=== PATIENT | female | born 1945 | race Caucasian/White ===

== ENCOUNTER 2017-11-14 07:32 | Observation (INO) ==
[2017-11-14] MEDS ORDERED: HYDROmorphone 2 MG/ML VIAL IM ONE (08:03)
--- NOTE | 2017-11-14 08:06 | Emergency Department Note ---
Back Pain HPI - General Chief Complaint: Back Pain/Injury Stated Complaint: low back pain, chronic Time Seen by Provider: 11/14/17 07:46 Source: EMS Limitations: physical limitation - History of Present Illness HPI Narrative: This patient has been having worsening back pain over the last week to the point that she can now hardly walk move her legs or get out of bed. She does live alone. She was here Tuesday and had plain films that show a lot of degenerative change some compression fractures. She was giving oxycodone tens and that does take the edge off but she cannot really function at home in this condition. No specific bowel or bladder impairment. We did have an MRI opening currently so we will obtain an MRI of this patient's back. - Related Data Home Medications Medication Instructions Recorded Confirmed cyanocobalamin (vit B-12) 1,000 1,000 mcg IM QMONTH 08/30/16 06/28/17 mcg/mL injection solution ipratropium 20 mcg-albuterol 100 1 inh INHALATION QID 08/30/16 06/28/17 mcg/actuation mist for inhalation hydrocodone 10 mg-acetaminophen 1 tab PO ONCE PRN 09/21/16 06/28/17 325 mg tablet tizanidine 4 mg capsule 4 mg PO Q7H PRN cap 09/21/16 06/28/17 tolterodine ER 4 mg 4 mg PO QDAY 09/21/16 06/28/17 capsule,extended release 24 hr fluticasone 110 mcg/actuation HFA 2 puff INHALATION BID 02/22/17 06/28/17 aerosol inhaler alprazolam 0.5 mg tablet See Label Instructions PO QDAY PRN 03/09/17 06/28/17 tab estradiol 2 mg tablet 2 mg PO QDAY tab 06/28/17 06/28/17 Previous Rx's Medication Instructions Recorded oxyCODONE HCL/ACETAMINOPHEN 1 each PO Q6 #10 tab 11/11/17 [Percocet 7.5-325 mg Tablet] Allergies Allergy/AdvReac Type Severity Reaction Status Date / Time cephalexin [From Keflex] Allergy Mild Itching Verified 06/28/17 14:06 aspirin Allergy Unknown Verified 06/28/17 14:06 ibuprofen Allergy Unknown Verified 06/28/17 14:06 Nickel Allergy Unknown Verified 06/28/17 14:06 NSAIDS (Non-Steroidal Allergy Unknown Verified 06/28/17 14:06 Anti-Inflamma Warfarin Allergy Unknown Verified 06/28/17 14:06 blood thinners Allergy Intermediate Unknown Uncoded 06/28/17 14:06 Review of Systems All systems ED: reviewed and negative except as stated. Past Medical History - Past Medical History [facility] Narrative: Medical History (Last Reviewed 03/09/17 @ 10:25 by Aleksander High MD) Abdominal pain (Chronic) Urinary incontinence (Chronic) Nausea (Chronic) Edema of lower extremity (Chronic) Spinal stenosis in cervical region (Chronic) Menopausal and postmenopausal disorder (Chronic) Cholecystitis (Chronic) Irritable bowel syndrome (Chronic) Barrios esophagus (Chronic) Chronic obstructive lung disease (Chronic) Acute exacerbation of chronic obstructive airways disease (Chronic) Bacterial pneumonia (Chronic) Allergic rhinitis (Chronic) Tobacco dependence syndrome (Chronic) Anxiety disorder (Chronic) Recurrent major depression (Chronic) Dementia (Chronic) Thrombocytopenic disorder (Chronic) Vitamin B12 deficiency (non anemic) (Chronic) Polyp of colon (Chronic) Atrophy of kidney (Chronic) Chronic neck pain (Acute) Medication refill (Acute) Idiopathic thrombocytopenic purpura (Chronic) Past Surgical History (Last Reviewed 03/09/17 @ 10:25 by Aleksander High MD) History of colonoscopy (Chronic) History of hysterectomy (Chronic) 11/14/17 07:36 Temperature 97.8 F Pulse Rate 104 H Respiratory Rate 18 Blood Pressure 115/70 Pulse Oximetry (%) 90 Medical history: Reports: other (chronic back pain) Psychiatric history: Reports: no psych history POWDERER history: Reports: non-contributory Surgical history ED: Reports: non-contributory - Social History smoking status: Current every day smoker Physical Exam Limitations: physical limitation General appearance: alert Head: atraumatic Abdominal: Absent: distention, tenderness Back: Present: straight leg raise (R), straight leg raise (L) Neurological: Present: alert Psychiatric: Present: normal affect Skin: Present: warm, dry, intact Course Vital Signs Temperature 97.8 F 11/14/17 07:36 Pulse Rate 104 H 11/14/17 07:36 Respiratory Rate 18 11/14/17 07:36 Blood Pressure 115/70 11/14/17 07:36 Pulse Oximetry (%) 90 11/14/17 07:36 Temperature 97.8 F 11/14/17 07:36 Pulse Rate 95 H 11/14/17 08:16 Respiratory Rate 18 11/14/17 07:36 Blood Pressure 99/60 11/14/17 08:16 Pulse Oximetry (%) 98 11/14/17 08:16 Back Pain/Injury - MDM Narrative Medical decision making narrative: We were able to do an MRI this morning and that is pending. Final disposition on this patient will be per Dr. Smalls. Disposition Pt seen by OUTREACH CLINICIAN/PA only: No Clinical Impression: Sciatica Disposition: Still a Patient Condition: Fair Referrals: Mack Grant MD [Primary Care Provider] -
[2017-11-14] MEDS ORDERED: LORazepam 2 MG/ML VIAL IM ONE (08:22)
--- NOTE | 2017-11-14 09:34 | Magnetic Resonance Report ---
CLINICAL INFORMATION:Reason for Exam:Back Pain COMPARISON: Lumbar x-ray on 11/11/17 TECHNIQUE: Sagittal T1 FLAIR, STIR, fast spin echo T2, axial T2 weighted images were acquired. FINDINGS: L5-S1 disc is severely narrowed and degenerated. 5 mm grade 1 spondylolisthesis is present. There is a medium-sized broad-based posterior bulge and there is moderate arthritis in both facets, left worse than right. There is an annular tear in the posterior disc posterolaterally on the right side. Mild central canal stenosis is present. There is severe stenosis of the left side neural foramen with associated nerve root compression. Right-sided neural foramen is mildly narrowed. At L4-5 the disc is moderately narrowed and there is 9 mm grade 1 spondylolisthesis. A medium-sized broad-based bulge is present. Severe spinal canal stenosis is present at the L4-5 level extending down to the mid L5 level. Much of this is due hypertrophy of the ligamentum flavum posterior to the thecal sac at the upper level of L5. There is severe stenosis of the right and moderate stenosis of the left-sided neural foramina. At L3-4 and L2-3 discs are normal in height but there are subtle posterior bulges. There is no stenosis. The T12-L1 and L1-2 discs are normal. Severe disc space narrowing is present at T10-11 and T11-12, with moderate disc space narrowing at T9-10. There is a medium-sized posterior bulge at L1-2 causing mild spinal canal stenosis. There is no cord compression. The spinal cord ends at the L1-2 level and is normal in size signal and contour. There is loss in height of the T 10 and T11 vertebra but there is no associated bone marrow edema or fracture line. IMPRESSION: Severe spinal canal stenosis at L4-5 and L5 due to spondylolisthesis, bulging disc and hypertrophy of the ligamentum flavum Mild spinal canal stenosis at T11-12 due to moderate-sized posterior bulge Severe stenosis of the neural foramina on the left at L5-S1 and right side at L4-5 Grade 1 spondylolisthesis at L5-S1 with associated posterior bulge Interpreted and Authenticated by: Andrés Gagnon 11/14/17
[2017-11-14] MEDS ORDERED: ONDANSETRON 4 MG/2 ML VIAL IV PRN ×2 (12:46→14:14)
[2017-11-14] MEDS ORDERED: MAGNESIUM HYDROXIDE 30 ML ORAL.SUSP PO PRN ×2 (12:46→14:14)
[2017-11-14] MEDS ORDERED: oxyCODONE/APAP 5/325MG TABLET PO PRN (12:46)
[2017-11-14] MEDS ORDERED: 0.9 % SODIUM CHLORIDE 1,000 ML IV SCH (13:00)
[2017-11-14] MEDS ORDERED: HYDROcodone/APAP 10/325MG TABLET PO PRN (13:07)
[2017-11-14] MEDS ORDERED: METHOCARBAMOL 500 MG TABLET PO PRN (13:07)
[2017-11-14] MEDS ORDERED: 0.9 % SODIUM CHLORIDE 10 ML SYRINGE IV SCH (14:00)
--- NOTE | 2017-11-14 14:07 | Internal Med History&Physical ---
Medical - H&P: HPI Patient information: Note initiated : 11/14/17 at 2:04 pm Service Date, if different from initiated Date: [] Patient: Lola Hearn a 71 y/o F admitted on for Chronic Low Back Pain. Chief Complaint: [uncontrollable back pain and inability to walk] History of present illness: Ms. Hearn is a 71 year old F patient has been having worsening back pain over the last week to the point that she can now hardly walk move her legs or get out of bed. She does live alone. She was here Tuesday and had plain films that show a lot of degenerative change some compression fractures. She was giving oxycodone tens and that does take the edge off but she cannot really function at home in this condition. No specific bowel or bladder impairment. We did have an MRI opening currently so we will obtain an MRI of this patient's back. Pt attended by her neighbor who helps with history as pt is very drowsy from MRI medication. The pt has 2 dogs at home. In last week has been unable to walk, care for self or go to bathroom. The patient is now only sedated due to additional pain meds given here. Outpt percocet had not controlled her pain. Pt tells me her legs give out and thinks her left leg is the weaker. Pt has seen Dr. Christianson in past and recommended for surgery but pt was not happy with benefit risk at the time. - Constitutional Constitutional: Present: frequent falls, weakness - Cardiovascular Cardiovascular: Absent: chest pain, dyspnea - Respiratory Respiratory: Absent: cough, wheezing, excessive phlegm production - Gastrointestinal Gastrointestinal: Present: constipation. Absent: abdominal pain, diarrhea, fecal incontinence, nausea - Genitourinary Genitourinary: Present: as per HPI - Musculoskeletal Musculoskeletal: Present: back pain, muscle weakness (both legs left greater than right) - Neurological Neurological: Present: radicular pain. Absent: numbness, paresthesias Medical - H&P: [facility] Medical history: abdominal pain (Chronic) Urinary incontinence (Chronic) Nausea (Chronic) Edema of lower extremity (Chronic) Spinal stenosis in cervical region (Chronic) Menopausal and postmenopausal disorder (Chronic) Cholecystitis (Chronic) Irritable bowel syndrome (Chronic) Barrios esophagus (Chronic) Chronic obstructive lung disease (Chronic) Acute exacerbation of chronic obstructive airways disease (Chronic) Bacterial pneumonia (Chronic) Allergic rhinitis (Chronic) Tobacco dependence syndrome (Chronic) Anxiety disorder (Chronic) Recurrent major depression (Chronic) Dementia (Chronic) Thrombocytopenic disorder (Chronic) Vitamin B12 deficiency (non anemic) (Chronic) Polyp of colon (Chronic) Atrophy of kidney (Chronic) Chronic neck pain (Acute) Medication refill (Acute) Idiopathic thrombocytopenic purpura (Chronic) Surgical history: History of colonoscopy (Chronic) History of hysterectomy (Chronic) Pertinent family history: none Social history: lives in [facility] Smoking status: Current every day smoker Have you smoked in the last 12 months: Yes Drug use: none Alcohol use: rarely Medical - H&P: Meds Home Medications Medication Instructions Recorded Confirmed Type cyanocobalamin (vit B-12) 1,000 1,000 mcg IM QMONTH 08/30/16 11/14/17 History mcg/mL injection solution ipratropium 20 mcg-albuterol 100 1 inh INHALATION QID 08/30/16 11/14/17 History mcg/actuation mist for inhalation hydrocodone 10 mg-acetaminophen 1 tab PO ONCE PRN 09/21/16 11/14/17 History 325 mg tablet tizanidine 4 mg capsule 4 mg PO Q7H PRN cap 09/21/16 11/14/17 History tolterodine ER 4 mg 4 mg PO QDAY 09/21/16 11/14/17 History capsule,extended release 24 hr fluticasone 110 mcg/actuation HFA 2 puff INHALATION BID 02/22/17 11/14/17 History aerosol inhaler alprazolam 0.5 mg tablet See Label Instructions PO QDAY PRN 03/09/17 11/14/17 History tab estradiol 2 mg tablet 2 mg PO QDAY tab 06/28/17 11/14/17 History Methocarbamol [Robaxin] 500 mg PO QIDP PRN 11/14/17 11/14/17 History Sertraline [Zoloft] 100 mg PO BID 11/14/17 11/14/17 History Umeclidinium [place] [Incruse 62.5 mcg IH DAILY 11/14/17 11/14/17 History Ellipta] oxyCODONE HCL/ACETAMINOPHEN 1 tab PO Q6 11/14/17 11/14/17 History [Percocet 7.5-325 mg Tablet] Allergies Allergy/AdvReac Type Severity Reaction Status Date / Time cephalexin [From Keflex] Allergy Mild Itching Verified 06/28/17 14:06 aspirin Allergy Unknown Verified 06/28/17 14:06 ibuprofen Allergy Unknown Verified 06/28/17 14:06 Nickel Allergy Unknown Verified 06/28/17 14:06 NSAIDS (Non-Steroidal Allergy Unknown Verified 06/28/17 14:06 Anti-Inflamma Warfarin Allergy Unknown Verified 06/28/17 14:06 blood thinners Allergy Intermediate Unknown Uncoded 06/28/17 14:06 Medical - H&P: Exam - Constitutional Vitals: Temp Pulse Resp BP Pulse Ox 97.8 F 91 H 18 90/52 88 L 11/14/17 07:36 11/14/17 13:31 11/14/17 07:36 11/14/17 13:31 11/14/17 13:31 General appearance: average body habitus, cooperative, disheveled - Expanded Eye Exam Pupils: reactive: Bilateral (3mm) - Expanded ENT Exam Throat exam: Present: normal inspection - Expanded Neck Exam Neck exam: Absent: tenderness - Respiratory Respiratory exam: Present: normal respiratory exam, decreased breath sounds ( bases) - Cardiovascular Cardiovascular exam: Present: normal rate and rhythm - GI/Abdominal GI/Abdominal exam: Present: normal bowel sounds, soft - Expanded Lower Extremities Exam Hip exam: Present: full ROM (bilateral hip. straight leg raise bilat no shooting pain) Gait: Present: not tested/not observed - Back Exam Back exam: Present: tenderness, vertebral tenderness Additional comments: no shooting pain elicited - Neurological Exam Neurological exam: Absent: alert - Expanded Neurological Exam Patient oriented to: Present: person, place, time Coma Scale Eye Opening: To Voice Coma Scale Motor Response: Obeys Commands Coma Scale Verbal Response: Oriented Coma Scale Total: 14 - Psychiatric Psychiatric exam: Present: depressed Medical - H&P: A/P (1) Lumbar spinal stenosis Current visit: Yes Status: Acute MRI today with severe canal stenosis at L4-5 and L5 with spondylolisthesis and bulging disc and hypertrophy of the ligamentum flavum. will start decadron and physical therapy. Will communicate with Dr. Geovanny Christianson MD for further inpatient or outpt followup depending on clinical course in next 24 hours. (2) Lumbar back pain with radiculopathy affecting left lower extremity Current visit: Yes Status: Acute pt oversedated from MRI premedication. Will further assess and initiate physical therapy. Straight leg test was not reproducing pain in EMD (3) Back pain Current visit: No Status: Acute weak and unable to walk or manage pain. admitted to observation. (4) Chronic obstructive lung disease Current visit: No Status: Chronic stable. cont home inhalers and prn nebs. (5) Tobacco dependence syndrome Current visit: No Status: Chronic initiate nicotine patch 14 mg (6) Urinary incontinence Current visit: No Status: Chronic chronic and unclear if related to lumbar stenosis. - Narrative A/P Narrative: 55 min spent in evaluation and coordination of care for this patient today.
[2017-11-14 15:36] LABS: Appearance,Urine CLEAR; Bacteria,Urine 0 /hpf (0); Bilirubin,Urine NEG (NEG); Color,Urine YELLOW; Glucose,Urine (UA) NEGATIVE (NEG); Leukocyte Esterase,Urine NEG /uL (NEG); Mucus,Urine FEW /hpf (0); Protein,Urine NEG (NEG); Specific Gravity,Urine 1.025 (1.000-1.035); Urine Blood NEG mg/dL (<0.03); Urine RBC < 1 /hpf (0-1); Urine Squamous Epithelial Cell 2 /hpf (0-4); Urine WBC < 1 /hpf (0-4); Urobilinogen,Urine NEG (NEG)
[2017-11-14 15:41] LABS: ALT/SGPT 14 U/l (0-40); Albumin 3.7 gm/dL (3.2-5.2); Albumin/Globulin Ratio 1.1 (1.0-2.3); Alkaline Phosphatase 90 U/L (39-117); Bilirubin,Direct < 0.2 mg/dL (0.0-0.3); Blood Urea Nitrogen 18 mg/dl (8-23); Gamma Glutamyl Transpeptidase 21 U/L (5-36); Uric Acid 9.1 mg/dL (2.5-8.0)
[2017-11-14 16:06] LABS: Basophils # (Auto) 0 K/mcL (0.0-0.3); Basophils % (Auto) 0.4 % (0.0-2.0); Eosinophils # (Auto) 0.2 K/mcL (0.0-0.7); Eosinophils % (Auto) 2.7 % (0.0-7.0); Granulocytes % (Auto) 59.6 % (38.0-78.0); Lymphocytes # (Auto) 1.6 K/mcL (1.5-4.8); Lymphocytes % (Auto) 24.8 % (15.5-49.0); Mean Cell Volume 103.5 fL (80.0-100.0); Mean Corpuscular HGB Conc 34.8 g/dL (31.0-36.0); Monocytes # (Auto) 0.8 K/mcL (0.1-0.9); Monocytes % (Auto) 12.5 % (1.0-12.0); Platelet Count 100 K/mcL (140-440); RBC 3.46 M/mcL (4.00-5.20); Red Cell Distribution Width 17.6 % (11.5-14.5)
[2017-11-14] MEDS: 0.9 % SODIUM CHLORIDE 1,000 ML IV SCH (16:46)
[2017-11-14] MEDS: DEXAMETHASONE 10 MG/ML VIAL IV SCH ×2 (16:48→21:34)
[2017-11-14] MEDS: IPRATROPIUM/ALBUTEROL SULFATE 1 PUFF INHALER INH SCH ×2 (16:49→21:35)
[2017-11-14] MEDS ORDERED: IPRATROPIUM/ALBUTEROL SULFATE 1 PUFF INHALER INH SCH (17:00)
[2017-11-14] MEDS ORDERED: DOCUSATE SODIUM 100 MG CAPSULE PO SCH (21:00)
[2017-11-14] MEDS ORDERED: FLUTICASONE HFA 110MCG INHALER INH SCH (21:00)
[2017-11-14] MEDS ORDERED: SERTRALINE 100 MG TABLET PO SCH (21:00)
[2017-11-14] MEDS: DOCUSATE SODIUM 100 MG CAPSULE PO SCH (21:34)
[2017-11-14] MEDS: SERTRALINE 100 MG TABLET PO SCH (21:34)
[2017-11-14] MEDS: FLUTICASONE HFA 110MCG INHALER INH SCH (21:35)
[2017-11-14] MEDS: 0.9 % SODIUM CHLORIDE 10 ML SYRINGE IV SCH (21:35)
[2017-11-15] MEDS: oxyCODONE/APAP 5/325MG TABLET PO PRN ×4 (00:41→12:05)
[2017-11-15] MEDS: METHOCARBAMOL 500 MG TABLET PO PRN ×3 (00:41→12:06)
[2017-11-15] MEDS: 0.9 % SODIUM CHLORIDE 1,000 ML IV SCH ×2 (01:37→12:12)
[2017-11-15] MEDS: DEXAMETHASONE 10 MG/ML VIAL IV SCH ×2 (02:34→07:05)
[2017-11-15] MEDS: 0.9 % SODIUM CHLORIDE 10 ML SYRINGE IV SCH (06:08)
[2017-11-15] MEDS ORDERED: ENOXAPARIN 40 MG/0.4 ML SYRINGE SQ SCH ×2 (09:00)
[2017-11-15] MEDS ORDERED: UMECLIDINIUM BROMIDE 62.5 MCG IH SCH (09:00)
[2017-11-15] MEDS ORDERED: ESTRADIOL 2 MG TABLET PO SCH (09:00)
[2017-11-15] MEDS ORDERED: ESTRADIOL 1 MG TABLET PO SCH (09:00)
[2017-11-15] MEDS ORDERED: TOLTERODINE TARTRATE 4 MG PO SCH (09:00)
[2017-11-15] MEDS ORDERED: TOLTERODINE 2 MG CAP.XL.24H PO SCH (09:00)
[2017-11-15] MEDS ORDERED: CYANOCOBALAMIN 1,000 MCG/ML VIAL IM SCH ×2 (09:00)
[2017-11-15] MEDS: IPRATROPIUM/ALBUTEROL SULFATE 1 PUFF INHALER INH SCH (09:55)
[2017-11-15] MEDS: DOCUSATE SODIUM 100 MG CAPSULE PO SCH (09:55)
[2017-11-15] MEDS: SERTRALINE 100 MG TABLET PO SCH (09:56)
[2017-11-15] MEDS: FLUTICASONE HFA 110MCG INHALER INH SCH (09:59)
--- NOTE | 2017-11-15 11:49 | Discharge Summary ---
Medical - DS: Prov Patient information: Note initiated : 11/15/17 at 11:38 am Service Date, if different from initiated Date: [] Patient: Lola Hearn 71 y/o F admitted on 11/14/17 for Chronic Low Back Pain. Chief Complaint: [] Date of admission: 11/14/17 14:00 Discharge date: 11/15/17 Primary care physician: Mack Grant Admitting clinician: Ricki Nayak Attending physician on admission: Ricki Nayak Consults: 11/14/17 10:53 Consult to Physician [CONS] Stat Comment: Consulting Provider: Ricki Nayak Reason For Exam: Physician to Consult Attending physician on discharge: Ricki Nayak Discharging clinician: Ricki Nayak Medical - DS: Meds - Discharge Medications Prescriptions: Dexamethasone [Decadron] 4 mg PO Q6H #18 tab HYDROcodone/APAP 10/325MG [[place] 10-325Mg] 1 tab PO ONCE PRN #30 tab PRN Reason: Pain Active and Home Medications: Home Medications cyanocobalamin (vit B-12) 1,000 mcg/mL injection solution 1,000 mcg IM QMONTH [History Confirmed 11/14/17 Last Taken 10/13/17 14:00] ipratropium 20 mcg-albuterol 100 mcg/actuation mist for inhalation 1 inh INHALATION QID 08/30/16 [History Confirmed 11/14/17 Last Taken 11/10/17 22:00] hydrocodone 10 mg-acetaminophen 325 mg tablet 1 tab PO ONCE PRN 09/21/16 [ History Confirmed 11/14/17 Last Taken 11/10/17 10:00] tolterodine ER 4 mg capsule,extended release 24 hr 4 mg PO QDAY 09/21/16 [ History Confirmed 11/14/17 Last Taken 10/31/17 22:00] fluticasone 110 mcg/actuation HFA aerosol inhaler 2 puff INHALATION BID [History Confirmed 11/14/17 Last Taken 11/10/17 18:00] alprazolam 0.5 mg tablet See Label Instructions PO QDAY PRN tab 03/09/17 [ History Confirmed 11/14/17 Last Taken 11/13/17 22:00] estradiol 2 mg tablet 2 mg PO QDAY tab 06/28/17 [History Confirmed 11/14/17 Last Taken 11/09/17 14:00] Methocarbamol [Robaxin] 500 mg PO QIDP PRN 11/14/17 [History Confirmed 11/14/17 Last Taken 11/10/17 22:00] Sertraline [Zoloft] 100 mg PO BID 11/14/17 [History Confirmed 11/14/17 Last Taken 11/07/17 07:00] Umeclidinium [place] [Incruse Ellipta] 62.5 mcg IH DAILY 11/14/17 [History Confirmed 11/14/17 Last Taken Unknown] oxyCODONE HCL/ACETAMINOPHEN [Percocet 7.5-325 mg Tablet] 1 tab PO Q6 11/14/17 [ History Confirmed 11/14/17 Last Taken 11/13/17 09:00] Medical - DS: Hosp Hospital course: Mr. 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 She has a primary care physician and has been referred to Dr. Cherry but referral has not come through yet. The patient went to the emergency department with worsened pain 2 days prior to admission and was started on oxycodone in addition to her hydrocodone and plain films were performed. 3 days later the patient came in with intractable pain unable to get out of bed without shooting pain to the backs of her calves. She reported left leg was more painful than right. Patient received lorazepam and and morphine pre-MRI dosing and was quite lethargic at the time of my initial evaluation. Patient did not have overt straight leg lifting shooting pain but was unable to stand and was placed on observation status. I treated her with Decadron 4 mg every 6 hours and low-dose morphine. Patient improved dramatically and went outside with her friend against hospital policy and was smoking this morning. Patient is alert and oriented and indicates that she does feel much better. She would like to have a facilitation for consultation with Dr. Cherry and I will make that call at this time. I called Dr. Cherry and he will attempt to get her in in the upcoming week. I will place the patient out on a steroid course as planned. Discharge diagnosis: lumbar spinal stenosis Secondary discharge diagnosis: Radiculopathy to left leg greater than right Tobacco abuse Reason for admission: lumbar spinal stenosis with radiculopathy and uncontrolled pain Complications: None - Time Spent with Patient Total time spent providing and/or coordinating discharge services: Greater than 30 minutes Medical - DS: Exam - Constitutional Vitals: Vital Signs Temp Pulse Pulse Resp BP BP Pulse Ox 11/15/17 07:57 97.1 F 81 20 144/77 90 11/15/17 07:13 87 20 95 11/15/17 03:21 97.5 F 87 20 115/67 95 11/15/17 00:00 98.3 F 101 H 20 102/65 92 11/14/17 20:00 98.2 F 103 H 20 112/72 90 11/14/17 15:41 98 F 14 103/70 97 11/14/17 14:42 97.7 F 14 106/68 97 11/14/17 13:31 91 H 90/52 88 L 11/14/17 13:16 88 93/51 95 11/14/17 13:01 97 H 97/56 92 11/14/17 12:46 102 H 99/68 89 L 11/14/17 12:31 100 H 114/70 98 11/14/17 12:17 94 H 98/59 93 11/14/17 12:01 96 H 108/67 92 11/14/17 11:46 98 H 99/61 91 Intake and Output 11/14/17 11/15/17 11/15/17 21:59 05:59 13:59 Intake Total 240 / 240 1785 / 1785 250 / 250 Output Total 226 / 226 200 / 200 Balance 240 / 240 1559 / 1559 50 / 50 Intake: IV 885 / 885 Sodium Chloride 0.9% 1,000 ml @ 885 / 885 100 mls/hr IV .Q10H [facility] Rx#: [id number] Oral 240 / 240 900 / 900 250 / 250 Output: Void Amount 225 / 225 200 / 200 # of times incontinent of urine / Other: Meal Circle, soup, fruit cup peaches - 1 cup Breakfast Percent of Meal Consumed 100% 100% 100% Feeding Ability Independent Independent Independent # Voids 1 Weight 110 lb - Back Exam Back exam: Present: vertebral tenderness (tenderness in the L5 and sacrum with our radiation at this time with palpation patient is able to stand unaided and ambulate unaided she reports pain is minimal at this time) Medical - DS: Data Labs on day of discharge: Labs from last 24 hours 11/14/17 11/14/17 11/14/17 14:56 14:39 14:39 WBC 6.4 RBC 3.46 L Hgb 12.5 Hct 35.8 L MCV 103.5 H MCH 36.0 H MCHC 34.8 RDW 17.6 H Plt Count 100 L MPV 7.8 Gran % 59.6 Lymph % (Auto) 24.8 [place] % (Auto) 12.5 H Eos % (Auto) 2.7 Baso % (Auto) 0.4 Gran # 3.8 Lymph # (Auto) 1.6 [place] # (Auto) 0.8 Eos # (Auto) 0.2 Baso # (Auto) 0 Differential Comment Sodium 136 Potassium 4.8 Chloride 97 Carbon Dioxide 30 Anion Gap 9.0 BUN 18 Creatinine 0.9 GFR Calculation 65 Glucose 89 Uric Acid 9.1 H Calcium 9.0 Phosphorus 4.5 Magnesium 2.2 Total Bilirubin 0.2 Direct Bilirubin < 0.2 GGT 21 AST 15 ALT 14 Alkaline Phosphatase 90 Lactate Dehydrogenase 150 Total Protein 7.0 Albumin 3.7 Globulin 3.3 Albumin/Globulin Ratio 1.1 Triglycerides 91 Urine Color Yellow Urine Appearance Clear Urine pH 5.0 Ur Specific [place] 1.025 Urine Protein Neg Urine Glucose (UA) Negative Urine Ketones 5/tr A Urine Occult Blood Neg Urine Nitrate Neg Urine Bilirubin Neg Urine Urobilinogen Neg Ur Leukocyte Esterase Neg Urine RBC < 1 Urine WBC < 1 Ur Squamous Epith Cells 2 Urine Bacteria 0 Urine Mucus Few Ur Culture Indicated? No - Additional Comments MRI of the back was done on date of admission 11/14/17 showing lumbar spinal stenosis Medical - DS: A/P - Patient/Caregiver Discharge Instructions Activity: resume usual activities as tolerated Diet: Regular Diet Prescriptions: Dexamethasone [Decadron] 4 mg PO Q6H #18 tab HYDROcodone/APAP 10/325MG [[place] 10-325Mg] 1 tab PO ONCE PRN #30 tab PRN Reason: Pain - Problem Maintenance (1) Lumbar spinal stenosis Status: Acute Qualifiers: Neurogenic claudication status: with neurogenic claudication Qualified Code (s): M48.062 - Spinal stenosis, lumbar region with neurogenic claudication (2) Lumbar back pain with radiculopathy affecting left lower extremity Status: Acute Comment: Effects left leg greater than right (3) Back pain Status: Acute Qualifiers: Back pain location: low back pain Chronicity: acute (4) Chronic obstructive lung disease Status: Chronic Qualifiers: COPD type: chronic bronchitis Chronic bronchitis type: mixed simple and mucopurulent Qualified Code(s): J41.8 - Mixed simple and mucopurulent chronic bronchitis; J41.8 - Mixed simple and mucopurulent chronic bronchitis; J41.8 - Mixed simple and mucopurulent chronic bronchitis; J41.8 - Mixed simple and mucopurulent chronic bronchitis (5) Tobacco dependence syndrome Status: Chronic (6) Urinary incontinence Status: Chronic - Follow up Plan Follow up with: Marquise Cherry MD [Physician] - Mack Grant MD [Primary Care Provider] - Disposition: Home, Self-Care Prognosis: Good Rehab Potential: Good Medical - DS: Qual - VTE Deep Vein Thrombosis/Pulmonary Embolism Present on Admission: No
[2017-11-16] MEDS ORDERED: PNEUMOCOCCAL 23-VAL P-SAC VAC 0.5 ML VIAL IM ONE (10:00)
== END 2017-11-15 14:15 | disposition home or self-care (01) ==
LOC: ED 07:32 → MEDSUR 07:32
PROVIDERS: ADMIT Internal Medicine; ATTEND Internal Medicine